=== PATIENT | male | born 1995 | race Caucasian/White ===

== ENCOUNTER 2018-04-20 13:59 | Emergency (ER) | payer OTHER ==
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
[2018-04-20] MEDS ORDERED: IBUPROFEN 600 MG TAB PO ONE (14:56)
[2018-04-20 15:43] VITALS: BP 150/75
== END 2018-04-20 15:42 | disposition home or self-care (01) ==
DX: S30.811A Abrasion of abdominal wall, initial encounter (principal); S50.819A Abrasion of unspecified forearm, initial encounter; S39.81XA Other specified injuries of abdomen, initial encounter; V43.52XA Car driver injured in collision with other type car in traffic accident, initial encounter; Y92.410 Unspecified street and highway as the place of occurrence of the external cause